=== PATIENT | female | born 1960 | race Caucasian/White ===

== ENCOUNTER → 2018-01-28 | Outpatient (CLI) | payer SELFPAY ==
--- NOTE | 2018-01-28 15:44 | RADIOLOGY REPORT (SQ) ---
EXAM DESCRIPTION: C SP 4 OR 5 VIEWS COMPLETED DATE/TIME: 01/28/2018 12:23 pm REASON FOR STUDY: CERVICALGIA M54.2 CERVICALGIA G54.2 CERVICAL ROOT DISORDERS, NOT ELSEWHERE CLASS IFIED COMPARISON: None. NUMBER OF VIEWS: Five views. TECHNIQUE: AP, lateral, obliques and odontoid radiographic images acquired of the cervical spine. LIMITATIONS: None. FINDINGS: MINERALIZATION: Normal. ALIGNMENT: Anatomic. VERTEBRAE: Vertebral bodies of normal height. Patient is status post anterior fusion extending from the C5 to the C7 level P DISCS: Patient is status post anterior fusion extending from the C5 to the C7 level. There is decrea se in the C3-C4 and C4-C5 disc space heights with associated osteophytic lipping. FORAMINA: No osteophytes or foraminal narrowing. LATERAL AND POSTERIOR ELEMENTS: Facets, lateral masses and spinous processes without significant find ings. HARDWARE: An anterior orthopedic plate transfixed by orthopedic screws is identified extending from t he C5 to the C7 level P SOFT TISSUES: No masses or calcifications. Lung apices clear. OTHER: No other significant finding. IMPRESSION: Postsurgical and degenerative changes as noted above TECHNICAL DOCUMENTATION: JOB ID: [id number] [employer]- All Rights Reserved Reading location - IP/workstation name: [email or web address]
== END ==
LOC: OD 12:06
PROVIDERS: ATTEND Family Medicine
DX: M54.2 Cervicalgia (principal); G54.2 Cervical root disorders, not elsewhere classified
CPT/HCPCS: 72050